=== PATIENT | male | born 1985 | race Caucasian/White ===

== ENCOUNTER 2020-11-03 18:32 | Emergency (ER) | payer BC ==
[~2020-11-03] VITALS: Ht 177.8 cm; Wt 81.8 kg
[2020-11-03 19:00] VITALS: BP 121/77
[2020-11-03] MEDS ORDERED: LIDOcaine 1% W/epiNEPHrine 1:200,000 10ml vial IJ ONE (20:05)
== END 2020-11-03 21:13 | disposition home or self-care (01) ==
LOC: ER 18:33
DX: S93.111A Dislocation of interphalangeal joint of right great toe, initial encounter (principal); X58.XXXA Exposure to other specified factors, initial encounter; Y93.9 Activity, unspecified; Y92.89 Other specified places as the place of occurrence of the external cause; Y99.8 Other external cause status; M79.674 Pain in right toe(s)
CPT/HCPCS: 28660; 73660; 99284

== ENCOUNTER 2021-03-09 08:26 | Emergency (ER) | payer BC, OTHER ==
[~2021-03-09] VITALS: Ht 177.8 cm; Wt 80.0 kg
[2021-03-09 08:56] VITALS: BP 116/70
== END 2021-03-09 10:59 | disposition home or self-care (01) ==
LOC: ER 08:26
DX: S61.411D Laceration without foreign body of right hand, subsequent encounter (principal); F17.200 Nicotine dependence, unspecified, uncomplicated; W29.3XXD Contact with powered garden and outdoor hand tools and machinery, subsequent encounter
CPT/HCPCS: 99281